=== PATIENT | male | born 1975 | race Caucasian/White ===

== ENCOUNTER 2024-09-22 18:28 | Emergency (ER) | payer BC, SELFPAY ==
[2024-09-22 18:36] VITALS: BP 141/94
--- NOTE | 2024-09-22 19:18 | ED.GENMED ---
History of Present Illness
General
Chief Complaint: Abdominal Pain
Source: patient
Exam Limitations: none
Time Seen by Provider: 09/22/24 18:57
Nursing documentation reviewed up to this point in time: agreed with
History of Present Illness
History of Present Illness:
Note:
CHIEF COMPLAINT(S)
Right lower quadrant abdominal pain.
HISTORY OF PRESENT ILLNESS
The patient is a 49-year-old male who presents with right lower quadrant abdominal pain that began suddenly earlier today. The pain has been constant, with episodes of waxing and waning intensity. The patient described the pain as a 10 on a scale
from zero to ten at its peak, but currently rates it as a five. The patient also reports experiencing nausea but no vomiting and does not feel nauseous now. Denies any fever, chills, diarrhea, or constipation. There has been no chest pain, trouble
breathing, or trouble urinating noted. He did just urinate and states the pain greatly decreased afterwards. Hx cholecystectomy. No recent illnesses.
PAST SURGICAL HISTORY
The patient reports having his gallbladder removed.
SOCIAL HISTORY
The patient reports no use of tobacco or alcohol and works at home, desk work
REVIEW OF SYSTEMS
- Gastrointestinal: Right lower quadrant pain, nausea
- Others: No fever, chills, diarrhea, or constipation
- General: No recent illnesses in the surrounding environment
- Urinary: No trouble urinating
PROBLEM LIST
- Acute: Right lower quadrant abdominal pain, nausea
- Chronic: None discussed
PLAN
- Plan to perform a Computed Tomography (CT) scan to assess the possibility of a kidney stone and its location.
- The patient will be monitored for nausea, and intravenous fluids will be administered if necessary.
DIFFERENTIAL DIAGNOSIS
The Differential Diagnosis includes, in no particular order and is not limited to:
- Appendicitis
- Nephrolithiasis (Kidney Stone)
- Hernia
- Urinary Tract Infection
- Diverticulitis
- Bowel Obstruction
Past History
Past History
ED Past Medical History: GERD and Other
ED Past Surgical History: Other ([place] tooth extraction)
Social History
Tobacco: Non-smoker
Personal:
Living: with family
Employment: Employed
Phy Exam
Physical Exam
Physical Exam:
GENERAL: No acute distress. A&Ox3. Nursing notes reviewed and vital signs reviewed.
CONSTITUTIONAL: Afebrile.
EYES: clear, conjunctivae normal
ENMT: moist mucus membranes, Pharynx nl
RESPIRATORY: Regular respirations, nonlabored, lungs clear.
CARDIOVASCULAR: Regular rate and rhythm, no murmurs, no rubs.
GI: Soft, nontender, normal BS
MUSCULOSKELETAL: Moves with ease. Well perfused.
SKIN: Warm, dry, pink
PSYCH: Normal mood and affect. Well kept, interactive and appropriate
NEUROLOGIC: Awake, alert and oriented. No focal neurological deficits
Course
Orders/Labs/Results
Orders:
Orders
09/22/24 19:17
CT Abd/pel Without Iv Or Oral Urgent
Comment:
Reason For Exam: R flank and RLQ pain
09/22/24 19:53
Complete Blood Count/With Diff Urgent
Comprehensive Metabolic Panel Urgent
Lipase Urgent
09/22/24 19:59
Urinalysis Reflex To Culture Urgent
Date Specimen was Collected: 09/22/24
Time Specimen was Collected: 19:58
Urine Microscopic Reflex Cult Urgent
Abnormal Lab Results
09/22/24 09/22/24
19:53 19:59
RBC 4.49 L 10^6/uL
(4.70-6.10)
Hct 37.1 L %
(39.0-52.0)
Absolute Lymphs (auto) 1.0 L 10^3/uL
(1.2-3.4)
Neutrophils % 80.8 H %
(42.2-75.2)
Lymphocytes % 12.6 L %
(20.5-51.1)
Glucose 127 H mg/dl
(70-99)
Urine Bacteria (Reflex) Few A
(Negative)
Urine Albumin (Reflex) 1+ A
(Neg - Trace)
09/22/24 19:53
09/22/24 19:53
Vital Signs
Initial and Last Documented VS:
Initial Vital Signs
Temp Pulse Resp BP Pulse Ox
98.7 F 40 18 141/94 99
09/22/24 18:36 09/22/24 18:36 09/22/24 18:36 09/22/24 18:36 09/22/24 18:36
Last Documented Vital Signs
Temp Pulse Resp BP Pulse Ox
98.7 F 40 18 141/94 99
09/22/24 18:36 09/22/24 18:36 09/22/24 18:36 09/22/24 18:36 09/22/24 18:36
MDM/Problems Addressed
MDM/Problems Addressed:
CBC, CMP unremarkable
U/A neg
CT abd/pelvis plain shows nothing abnormal. No indication of cystitis.
Pt is completely pain free now, asymptomatic.
Stable for discharge. Nothing in workup here today to explain his symptoms.
*Critical Care Note
Total Time (30-74mins, 75-104mins- exclusive of procedures): Not Applicable
ED Attending Note
-
Portions of this chart may have been created with voice recognition software.� Occasional wrong word or��sound alike� substitutions may have occurred due to the inherent limitations of voice recognition software.
Discharge Plan
Departure
Patient Disposition: Home (Routine Discharge)
Date of Disposition: 09/22/24
Time of Disposition: 21:15
Patient with high blood pressure during this ER visit?: No
Condition: Good
Discharge Problem:
Abdominal pain
Instructions: Abdominal Pain
Prescriptions:
No Action
Omeprazole
20 mg PO DAILY
Referrals:
UNKNOWN - PT DOES,NOT KNOW [Family Provider]
Activity Restrictions/Additional Instructions:
As we discussed, nothing worrisome in your workup here today.
I am glad you are feeling better.
Interventions
Interventions:
*Risk Screen - Suicide Last Done: 09/22/24 18:38
*General Assessment Last Done: 09/22/24 18:38
*Neglect/Abuse Screening Last Done: 09/22/24 18:38
*ED COVID-19 Vaccine History Last Done: 09/22/24 18:38
*Nursing Disposition Last Done: 09/22/24 21:33
KE-Salruz-Ypnhhexjox Assessment Last Done: 09/22/24 20:07
Discharge Date and Time
Discharge Date/Time: 09/22/24 21:34
Print Language: PRYDEINIG
[2024-09-22 20:05] LABS: Urine Albumin 1+ (Neg - Trace); Urine Bilirubin Negative (Negative); Urine Character Clear (Clear); Urine Color Yellow; Urine Glucose Negative (Negative); Urine Ketone Negative (Negative); Urine Leukocyte Negative (Negative); Urine Nitrite Negative (Negative); Urine Occult Blood Negative (Negative); Urine Specific Gravity 1.025 (<1.030); Urine Urobilinogen 1+ (Neg - 1+)
[2024-09-22 20:06] LABS: % Basophils 0.3 % (0-2); % Eosinophils 1.9 % (0-6); % Immature Granulocytes 0.3 % (0-0.5); % Lymphocytes 12.6 % (20.5-51.1); % Monocytes 4.1 % (1.7-9.3); % Neutrophils 80.8 % (42.2-75.2); Absolute Eosinophils 0.2 10^3/uL (0-0.7); Absolute Monocytes 0.3 10^3/uL (0.1-0.6); Absolute Neutrophils 6.3 10^3/uL (1.4-6.5); Hematocrit 37.1 % (39.0-52.0); Hemoglobin 13.2 g/dL (13.0-18.0); Mean Corp Hgb Conc. 35.6 g/dL (33.0-37.0); Mean Corpuscular Hgb 29.4 pg (27.0-31.0); Mean Corpuscular Volume 82.6 fL (80.0-94.0); Mean Platelet Volume 9.9 fL (7.4-10.4); Nucleated Red Blood Cells % 0 % (-); Platelet Count 204 10^3/uL (130-400); Red Blood Cell Count 4.49 10^6/uL (4.70-6.10); Red Cell Dist. Width 12.3 % (11.5-14.5); White Blood Cell Count 7.8 10^3/uL (4.8-10.8)
[2024-09-22 20:27] LABS: ALT (SGPT) 23 U/L (0-50); AST (SGOT) 19 U/L (17-59); Albumin 4.4 g/dl (3.5-5.0); Alkaline Phosphatase 53 U/L (38-126); Blood Urea Nitrogen 16 mg/dl (9-20); Calcium 9.1 mg/dl (8.4-10.2); Carbon Dioxide 25 mmol/L (22-30); Chloride 107 mmol/L (98-107); Glucose 127 mg/dl (70-99); Lipase 43 U/L (23-300); Potassium 3.8 mmol/L (3.5-5.1); Sodium 140 mmol/L (135-145); Total Bilirubin 0.7 mg/dl (0.2-1.3); Total Protein 6.9 g/dl (6.3-8.2); eGFR > 60.00
[2024-09-22 20:37] LABS: Urine Bacteria Few (Negative); Urine Mucus Many; Urine Red Blood Cell 0-2 /HPF (0-2); Urine Squamous Cell 0-2 /LPF (Few); Urine White Cell 0-2 /HPF (0-5)
== END 2024-09-22 21:34 | disposition home or self-care (01) ==
LOC: EMR 18:28
PROVIDERS: Registered Nurse; EMERGENCY PHYSICIAN Emergency Medicine
DX: R10.31 Right lower quadrant pain (principal); Z90.49 Acquired absence of other specified parts of digestive tract
CPT/HCPCS: 99284; 74176; 80053; 81003; 81015; 83690; 85025

== ENCOUNTER → 2024-10-08 16:34 | Outpatient (REF) | payer BC, SELFPAY | LOC: DHSLP 16:34 | PROVIDERS: ATTENDING PHYSICIAN Internal Medicine Cardiovascular Disease; FAMILY PHYSICIAN Student in an Organized Health Care Education/Training Program | DX: G47.33 Obstructive sleep apnea (adult) (pediatric) (principal) | CPT/HCPCS: 95800 ==

== ENCOUNTER → 2024-10-21 12:53 | Outpatient (REF) | payer BC, SELFPAY | LOC: HWRCS 12:53 | PROVIDERS: ATTENDING PHYSICIAN Internal Medicine Cardiovascular Disease; FAMILY PHYSICIAN Student in an Organized Health Care Education/Training Program | DX: R00.2 Palpitations (principal) | CPT/HCPCS: 93306 ==

== ENCOUNTER → 2024-11-09 09:20 | Outpatient (REF) | payer BC, SELFPAY | LOC: RCS 09:20 | PROVIDERS: ATTENDING PHYSICIAN Internal Medicine Cardiovascular Disease; FAMILY PHYSICIAN Student in an Organized Health Care Education/Training Program | DX: R00.2 Palpitations (principal) | CPT/HCPCS: 93017 ==

== ENCOUNTER → 2025-01-14 08:16 | Outpatient (REF) | payer BC, SELFPAY | LOC: PAVMRI 08:16 | PROVIDERS: ATTENDING PHYSICIAN Internal Medicine Cardiovascular Disease; FAMILY PHYSICIAN Student in an Organized Health Care Education/Training Program | DX: R00.2 Palpitations (principal) | CPT/HCPCS: 75565 ==